=== PATIENT | female | born 1970 | race Caucasian/White ===

== ENCOUNTER 2016-11-13 14:40 | Observation (INO) | payer MEDICAID ==
[2016-11-13] MEDS ORDERED: OXYCODONE-ACETAMINOPHEN 5-325 MG TABLET PO ONE (15:11)
--- NOTE | 2016-11-13 15:13 | ER Document Report ---
ED Medical Screen (RME) - General Chief Complaint: Fall Injury Stated Complaint: FALL/HIP AND RIB PAIN Time seen by provider: 15:11 Mode of Arrival: Wheelchair Information source: Patient TRAVEL OUTSIDE OF THE [place] IN LAST 30 DAYS: No - HPI Patient complains to provider of: trip and fall Onset: Just prior to arrival Onset/Duration: Sudden Quality of pain: Achy Severity: Severe Pain Level: 5 Exacerbated by: Movement Relieved by: Denies Similar symptoms previously: No Recently seen / treated by doctor: No Notes: 11/13/16 15:12 Patient is a 46 female who presents to the emergency room via EMS for trip and fall down 2 stairs landing on her left side on the concrete, reports pain to her left hip, left rib cage, stating that she can feel her ribs crack and moving with each breath, states she also hit her head, denies any loss of consciousness but reports a headache - Related Data Allergies/Adverse Reactions: Penicillins Allergy (Verified 11/13/16 15:03) Past Medical History Renal/ Medical History: Denies: Hx Peritoneal Dialysis Physical Exam - Vital signs Vitals: Temp Pulse Resp BP Pulse Ox 97.3 F 78 20 119/92 H 100 11/13/16 15:03 11/13/16 15:03 11/13/16 15:03 11/13/16 15:03 11/13/16 15:03 Course - Vital Signs Vital signs: Temp Pulse Resp BP Pulse Ox 97.3 F 78 20 119/92 H 100 11/13/16 15:03 11/13/16 15:03 11/13/16 15:03 11/13/16 15:03 11/13/16 15:03
[2016-11-13] MEDS ORDERED: KETOROLAC TROMETHAMINE 60 MG/2 ML SDV IM ONE (16:50)
--- NOTE | 2016-11-13 17:56 | ER Document Report ---
ED Fall - General Mode of Arrival: Wheelchair Information source: Patient TRAVEL OUTSIDE OF THE [place] IN LAST 30 DAYS: No - HPI Patient complains to provider of: Pain from Fall Occurred: Just prior to arrival Where: Home Context: Tripped Associated symptoms: Other - Lethargic. denies: Lost consciousness, Seizure Location of injury/pain: Ankle - Left, Hip - Left, Trunk - Left ribs <REYNALDO MOODY - Last Filed: 11/13/16 18:50> <REA SOLOMON - Last Filed: 11/16/16 05:47> - General Chief Complaint: Fall Injury Stated Complaint: FALL/HIP AND RIB PAIN Notes: Patient is a 46-year-old female presenting to the emergency department after tripping and falling down 3 steps onto a cement slab hold while holding a pot of water for her grapevines to soak in. Patient states that she landed on her left side and the pot hit her in the head. Patient is concerned about her left ribs, left hip, and left ankle. Patient's daughter states that she was acting lethargic, and the patient has a history of narcolepsy, so they were keeping her awake. Patient denies any loss of consciousness or seizure. Patient states that she was unable to get up, so she called EMS. (REYNALDO MOODY) - Related data Allergies/Adverse Reactions: Penicillins Allergy (Verified 11/13/16 15:03) Home Medications: Current Home Medications Dextroamphetamine/Amphetamine [Adderall 30 mg Tablet] 15 mg PO QPM 11/13/16 [ History] Dextroamphetamine/Amphetamine [Adderall 30 mg Tablet] 30 mg PO BID@0800,1200 09/27 [History] Past Medical History - General Information source: Patient - Social History Smoking Status: Current Every Day Smoker Chew tobacco use (# tins/day): No Frequency of alcohol use: None Drug Abuse: None Family History: Reviewed & Not Pertinent Patient has suicidal ideation: No Patient has homicidal ideation: No Neurological Medical History: Reports: Other - Narcolepsy Past Surgical History: Reports: Hx Tubal Ligation - Immunizations Hx Diphtheria, Pertussis, Tetanus Vaccination: No - pt not sure <REYNALDO MOODY - Last Filed: 11/13/16 18:50> Review of Systems - Review of Systems Constitutional: No symptoms reported EENT: No symptoms reported Cardiovascular: No symptoms reported Respiratory: No symptoms reported Gastrointestinal: No symptoms reported Genitourinary: No symptoms reported Female Genitourinary: No symptoms reported Musculoskeletal: See HPI, Other - Pain to left ribs, left hip and left ankle Skin: No symptoms reported Hematologic/Lymphatic: No symptoms reported Neurological/Psychological: No symptoms reported -: Yes All other systems reviewed and negative <REYNALDO MOODY - Last Filed: 11/13/16 18:50> Physical Exam - Vital signs Interpretation: Normal - General General appearance: Appears well, Alert - HEENT Head: Normocephalic, Atraumatic Eyes: Normal Pupils: PERRL Tympanic membrane: No: Hemotympanum Neck: No: Posterior cervical chain - Respiratory Respiratory status: No respiratory distress Chest status: Nontender Breath sounds: Normal Chest palpation: Normal - Cardiovascular Rhythm: Regular Heart sounds: Normal auscultation Murmur: No - Abdominal Inspection: Normal Distension: No distension Bowel sounds: Normal Tenderness: Nontender Organomegaly: No organomegaly - Back Back: Nontender - No midline lumbar, cervical, or sacral tenderness. No: Vertebra tenderness - Extremities General upper extremity: Normal inspection, Nontender, Normal ROM, Normal strength, Normal temperature. No: Edema Hip: Tender - Superficial tenderness over abrasion with ecchymosis on the left anterior pelvis, Abrasion, Ecchymosis Ankle: Tender - Tenderness over the medial malleoli of the left ankle. No swelling, no erythema - Neurological Neuro grossly intact: Yes Cognition: Normal White[place] Coma Scale Eye Opening: Spontaneous [place] Coma Scale Verbal: Oriented Debra Coma Scale Motor: Obeys Commands White[place] Coma Scale Total: 15 Speech: Normal - Psychological Associated symptoms: Normal affect, Normal mood - Skin Skin Temperature: Warm Skin Moisture: Dry Skin Color: Normal <REYNALDO MOODY - Last Filed: 11/13/16 18:50> Course <REYNALDO MOODY - Last Filed: 11/13/16 18:50> - Laboratory Result Diagrams: 11/13/16 19:00 11/13/16 19:00 <REA SOLOMON - Last Filed: 11/16/16 05:47> - Re-evaluation Re-evalutation: 11/13/16 18:09 Patient presents emergency per with chief plain left hip pain left rib pain status post mechanical fall she was going down stairs holding a pot of cold water tripped down 3 steps and landed on her left side onto a concrete slab. I said she had trouble getting up EMS came and on arrival she is complaining of pain over the left hip region which is not short or externally rotated. She also has pain over the rib cage area with no crepitus necrosis shortness of breath or hypoxia. Full eye examination doesn't reveal any other injuries. Questionable x-ray of the iliac crest CT scan showed a iliac fracture with inferior 10 mm displacement. I contacted Dr. Whitfield hiv prevention specialist for orthopedic surgeon and read the results of the x-ray CT scan to him verbatim. At this point he says the patient can go home with pain medication and a walker and he will see her in the office in 2 or 3 days. Discussed this with the patient order written for walker although can't discharge her with one from here. As well as pain control and orthopedic follow-up. 11/13/16 18:44 To the bedside to reassess patient patient very angry at the suggestion of sending her home by ambulance with a walker pain medication orthopedic follow- up. After she got done being angry with me and telling me that she did not prefer the way I practiced medicine I asked her if she wanted me to contact the hospitalist for pain control she says she can't roll over in the bed she can't use a walker and she can't walk I spoke with the hospitalist who said he would admit her for observation with the perspective that she'll be going home in the morning with the same issues of pain walker outpatient follow-up. Discussed this with the patient and admitted her to the hospital. (REA SOLOMON) - Vital Signs Vital signs: Temp Pulse Resp BP Pulse Ox 98.1 F 84 16 123/74 96 11/15/16 12:58 11/15/16 12:58 11/15/16 12:58 11/15/16 12:58 11/15/16 12:58 Discharge <REYNALDO MOODY - Last Filed: 11/13/16 18:50> - Discharge Admitting Provider: Hospitalist Unit Admitted: Medical Floor <REA SOLOMON - Last Filed: 11/16/16 05:47> - Discharge Clinical Impression: acute left ninth rib fracture, acute left pelvic fracture, intractable pain Condition: Stable Disposition: ADMITTED OBSERVATION Scribe Attestation: 11/13/16 18:09 I personally performed the services described in the documentation reviewed the documentation recorded by my scribe in my presence and it accurately and completely records my words and actions (REA SOLOMON) Scribe Documentation - Scribe Written by Scribisa:: Reynaldo Moody 11/13/2016 [id number] acting as scribe for :: Dr. Solomon <REYNALDO MOODY - Last Filed: 11/13/16 18:50>
[2016-11-13] MEDS ORDERED: ONDANSETRON HCL INJ/PF 4 MG/2 ML SDV IV PRN (18:49)
[2016-11-13] MEDS ORDERED: ACETAMINOPHEN 325 MG TABLET PO PRN (18:49)
--- NOTE | 2016-11-13 19:07 | PDOC H&P ---
History of Present Illness Admission Date/PCP: 11/13/16 18:48 Patient complains of: Pelvic pain History of Present Illness: RICHMOND ROJAS is a 46 year old female that sustained a mechanical fall today resulting in left chest wall and left pelvic pain. She was found to have a left ninth rib fracture and left iliac fracture in emergency department. Dr. Whitfield of orthopedics was consulted over the telephone and reviewed imaging. He advised pain control and ambulation with a rolling walker. He advised outpatient orthopedic follow-up. Patient was unable to discharge from the emergency department due to intractable pain. Past Medical History Cardiac Medical History: Reports: None Pulmonary Medical History: Reports: None EENT Medical History: Reports: None Neurological Medical History: Reports: Other - Narcolepsy Past Surgical History Past Surgical History: Reports: Tubal Ligation Social History Information Source: Patient Smoking Status: Current Every Day Smoker - Advance Directive Resuscitation Status: Full Code Family History Family History: Reviewed & Not Pertinent Parental Family History Reviewed: Yes Children Family History Reviewed: Yes Sibling(s) Family History Reviewed.: Yes Medication/Allergy Home Medications: Oxycodone HCl/Acetaminophen [Percocet 5-325 mg Tablet] 1 - 2 tab PO Q4H PRN #15 tablet 11/13/16 Allergies/Adverse Reactions: Penicillins Allergy (Verified 11/13/16 15:03) Review of Systems Constitutional: ABSENT: chills, fever(s), headache(s), weight gain, weight loss Eyes: ABSENT: visual disturbances Ears: ABSENT: hearing changes Cardiovascular: ABSENT: chest pain, dyspnea on exertion, edema, orthropnea, palpitations Respiratory: ABSENT: cough, hemoptysis Gastrointestinal: ABSENT: abdominal pain, constipation, diarrhea, hematemesis, hematochezia, nausea, vomiting Genitourinary: ABSENT: dysuria, hematuria Musculoskeletal: PRESENT: other - Pelvic, left chest wall pain. ABSENT: joint swelling Integumentary: ABSENT: rash, wounds Neurological: ABSENT: abnormal gait, abnormal speech, confusion, dizziness, focal weakness, syncope Psychiatric: ABSENT: anxiety, depression, homidical ideation, suicidal ideation Endocrine: ABSENT: cold intolerance, heat intolerance, polydipsia, polyuria Hematologic/Lymphatic: ABSENT: easy bleeding, easy bruising Physical Exam Vital Signs: Temp Pulse Resp BP Pulse Ox 97.3 F 82 18 119/85 100 11/13/16 15:03 11/13/16 18:05 11/13/16 18:05 11/13/16 18:05 11/13/16 15:03 PHYSICAL EXAM: GENERAL: Appears well, no acute distress HEENT: Normocephalic, no scleral icterus, conjunctiva clear, EOEM intact, PERRLA , moist mucous membranes NECK: trachea midline, no thyromegally RESPIRATORY: Clear to auscultation, no wheezes/rhonchi CARDIAC: Regular rate and rhythm, no murmur/ekta/rub ABDOMEN: Soft, no distension, no tenderness, no guarding, normal bowel sounds, negative Benitez sign RECTAL: deferred : deferred EXTREMITIES: No edema, cyanosis, clubbing MUSCULOSKELETAL: Left chest wall tenderness, pain with range of motion left lower extremity VASCULAR: normal peripheral pulses NEUROLOGIC: Alert, oriented to person/place/time, normal speech, cranial nerves grossly intact, 5/5 strength in all extremities, tactile sensation intact in all extremities SKIN: No rash, no wounds, no worrisome skin lesions PSYCHIATRIC: Tearful, crying Results Impressions: Head CT 11/13/16 15:11 IMPRESSION: NORMAL BRAIN CT WITHOUT CONTRAST. Hip X-Ray 11/13/16 15:11 IMPRESSION: 1. BONY IRREGULARITY OR EXOSTOSIS ON THE LEFT ILIAC CREST. THIS IS PROBABLY A CHRONIC FINDING. HOWEVER, DEPENDING ON THE MECHANISM OF INJURY AND CLINICAL SYMPTOMS, A FRACTURE CANNOT BE EXCLUDED. RECOMMEND CLINICAL CORRELATION AND IF THERE IS CONCERN THEN CT MAY BE INDICATED. 2. NO OTHER ACUTE OR SIGNIFICANT FINDINGS. Ribs w/Chest X-Ray 11/13/16 15:11 IMPRESSION: FRACTURE OF THE LATERAL LEFT 9TH RIB. NO SIGNIFICANT PULMONARY FINDINGS. Pelvis CT 11/13/16 16:49 IMPRESSION: 2 cm avulsed fragment from the left anterior superior iliac spine, 10 mm of inferior displacement fracture. Assessment & Plan - Diagnosis (1) Pelvic fracture Is this a current diagnosis for this admission?: YesPlan: Pain control. Physical therapy to ambulate patient using rolling walker. Outpatient orthopedic follow-up with Dr. Whitfield. Discharge home once patient is able to mobilize. (2) Left rib fracture Is this a current diagnosis for this admission?: Yes - Time Time Spent: 50 to 70 Minutes Anticipated discharge: Home Within: within 48 hours
[2016-11-13 19:24] LABS: ABSOLUTE BASOPHILS # (AUTO) 0.1 10^3/uL (0.0-0.2); ABSOLUTE EOSINOPHILS # (AUTO) 0.1 10^3/uL (0.0-0.6); ABSOLUTE LYMPHOCYTES (AUTO) 1.4 10^3/uL (0.5-4.7); ABSOLUTE MONOCYTES (AUTO) 0.5 10^3/uL (0.1-1.4); ABSOLUTE NEUT (AUTO) 6.3 10^3/uL (1.7-8.2); BASOPHILS % (AUTO) 0.7 % (0-2); EOSINOPHILS % (AUTO) 1.3 % (0-6); HEMATOCRIT 37.8 % (36.0-47.0); HEMOGLOBIN 12.8 g/dL (12.0-15.5); HGB HCT DIFFERENCE 0.6; MEAN CORPUSCULAR HEMOGLOBIN 31.5 pg (27.0-33.4); MEAN CORPUSCULAR HGB CONC 33.9 g/dL (32.0-36.0); MEAN CORPUSCULAR VOLUME 93 fl (80-97); MONOCYTES % (AUTO) 6.2 % (3-13); RED BLOOD COUNT 4.07 10^6/uL (3.72-5.28); RED CELL DISTRIBUTION WIDTH 12.9 % (11.5-14.0); SEGMENTED NEUTROPHILS % (AUTO) 74.8 % (42-78); WHITE BLOOD COUNT 8.4 10^3/uL (4.0-10.5)
[2016-11-13 19:52] LABS: ALANINE AMINOTRANSFERASE 34 U/L (9-52); ALBUMIN 3.9 g/dL (3.5-5.0); ALKALINE PHOSPHATASE 90 U/L (38-126); ANION GAP 10 (5-19); ASPARTATE AMINO TRANSFERASE 31 U/L (14-36); BILIRUBIN,DIRECT 0.1 mg/dL (0.0-0.4); BILIRUBIN,TOTAL 0.4 mg/dL (0.2-1.3); BLOOD UREA NITROGEN 13 mg/dL (7-20); CALCIUM 8.9 mg/dL (8.4-10.2); CARBON DIOXIDE 29 mmol/L (22-30); CHLORIDE 103 mmol/L (98-107); CREATININE RESULT 0.61 mg/dL (0.52-1.25); GLUCOSE 159 mg/dL (75-110); POTASSIUM 3.9 mmol/L (3.6-5.0); SODIUM 142.4 mmol/L (137-145); TOTAL PROTEIN 6.4 g/dL (6.3-8.2)
[2016-11-13] MEDS: HYDROMORPHONE HCL INJ/PF 2 MG/ML AMPULE IV PRN (20:31)
[2016-11-13] MEDS: HEPARIN SOD (PORCINE) 5,000 UNIT/ML 1 ML SYRINGE SUBCUT SCH (21:48)
[2016-11-14] MEDS: HYDROMORPHONE HCL INJ/PF 2 MG/ML AMPULE IV PRN ×4 (01:01→18:15)
[2016-11-14] MEDS: HEPARIN SOD (PORCINE) 5,000 UNIT/ML 1 ML SYRINGE SUBCUT SCH ×3 (05:24→21:11)
[2016-11-14] MEDS: OXYCODONE HCL IR 5 MG TABLET PO PRN (09:16)
--- NOTE | 2016-11-14 12:27 | PDOC PROGRESS REPORT ---
Subjective Progress Note for:: 11/14/16 Subjective:: Patient has continued pain that has been relieved with IV Dilaudid. She was able to get from bed to the bedside commode but was very uncomfortable. Patient denies fever, chills, headache, new focal weakness, chest pain, shortness of breath, abdominal pain, nausea, vomiting, diarrhea, constipation. Physical Exam Vital Signs: Temp Pulse Resp BP Pulse Ox 97.9 F 73 16 114/77 93 11/14/16 08:44 11/14/16 08:44 11/14/16 08:44 11/14/16 08:44 11/14/16 08:44 Intake & Output 11/13/16 11/14/16 11/15/16 06:59 06:59 06:59 Intake Total 300 Output Total 1 Balance 299 Weight 71.6 kg GENERAL: No acute distress, uncomfortable appearing HEENT: Conjunctiva clear, nonicteric, moist mucous membranes, no JVD, midline trachea RESPIRATORY: Clear to auscultation bilaterally, no wheezes, no rhonchi CARDIAC: Regular rate and rhythm, no murmurs/gallops/rubs ABDOMEN: Soft, nondistended, nontender, positive bowel sounds, no rebound, no guarding EXTREMETIES: No edema, cyanosis, clubbing NEUROLOGIC: Alert, oriented to person/place/time, CN's grossly intact, no focal deficits SKIN: No rash, wounds PSYCH: Normal mood, normal affect Results Laboratory Results: 11/13/16 19:00 11/13/16 19:00 11/13/16 11/13/16 19:00 19:00 WBC 8.4 RBC 4.07 Hgb 12.8 Hct 37.8 MCV 93 MCH 31.5 MCHC 33.9 RDW 12.9 Plt Count 205 Seg Neutrophils % 74.8 Lymphocytes % 17.0 Monocytes % 6.2 Eosinophils % 1.3 Basophils % 0.7 Absolute Neutrophils 6.3 Absolute Lymphocytes 1.4 Absolute Monocytes 0.5 Absolute Eosinophils 0.1 Absolute Basophils 0.1 Sodium 142.4 Potassium 3.9 Chloride 103 Carbon Dioxide 29 Anion Gap 10 BUN 13 Creatinine 0.61 Est GFR ( Amer) > 60 Est GFR (Non-Af Amer) > 60 Glucose 159 H Calcium 8.9 Total Bilirubin 0.4 AST 31 ALT 34 Alkaline Phosphatase 90 Total Protein 6.4 Albumin 3.9 Impressions: Head CT 11/13/16 15:11 IMPRESSION: NORMAL BRAIN CT WITHOUT CONTRAST. Hip X-Ray 11/13/16 15:11 IMPRESSION: 1. BONY IRREGULARITY OR EXOSTOSIS ON THE LEFT ILIAC CREST. THIS IS PROBABLY A CHRONIC FINDING. HOWEVER, DEPENDING ON THE MECHANISM OF INJURY AND CLINICAL SYMPTOMS, A FRACTURE CANNOT BE EXCLUDED. RECOMMEND CLINICAL CORRELATION AND IF THERE IS CONCERN THEN CT MAY BE INDICATED. 2. NO OTHER ACUTE OR SIGNIFICANT FINDINGS. Ribs w/Chest X-Ray 11/13/16 15:11 IMPRESSION: FRACTURE OF THE LATERAL LEFT 9TH RIB. NO SIGNIFICANT PULMONARY FINDINGS. Pelvis CT 11/13/16 16:49 IMPRESSION: 2 cm avulsed fragment from the left anterior superior iliac spine, 10 mm of inferior displacement fracture. Assessment & Plan - Diagnosis (1) Pelvic fracture Is this a current diagnosis for this admission?: YesPlan: Pain control. Physical therapy to ambulate patient using rolling walker. Outpatient orthopedic follow-up with Dr. Whitfield. Discharge home once patient is able to mobilize. (2) Left rib fracture Is this a current diagnosis for this admission?: YesPlan: Incentive spirometer. Pain control. (3) Narcolepsy Is this a current diagnosis for this admission?: YesPlan: Resume home doses of Adderall. - Time Time Spent with patient: 25-34 minutes Anticipated discharge: Home Within: within 48 hours
[2016-11-14] MEDS ORDERED: AMPHETAMINE PO SCH (18:00)
[2016-11-14] MEDS ORDERED: DEXTROAMPHETAMINE PO SCH (18:00)
[2016-11-15] MEDS: HYDROMORPHONE HCL INJ/PF 2 MG/ML AMPULE IV PRN ×2 (00:19→11:13)
[2016-11-15] MEDS: OXYCODONE HCL IR 5 MG TABLET PO PRN (05:18)
[2016-11-15] MEDS: HEPARIN SOD (PORCINE) 5,000 UNIT/ML 1 ML SYRINGE SUBCUT SCH ×2 (05:18→13:09)
[2016-11-15] MEDS ORDERED: (PENDING PHARMACY ID) (Dextroamphetamine/Amphetamine [Adderall 30 Mg Tablet] 30 MG) PO SCH (08:00)
[2016-11-15 13:01] VITALS: BP 123/74
--- NOTE | 2016-11-15 17:28 | PDOC DISCHARGE SUMMARY ---
General - Admit/Disc Date/PCP Admission Date/Primary Care Provider: 11/13/16 18:49 Discharge Date: 11/15/16 - Discharge Diagnosis (1) Pelvic fracture Is this a current diagnosis for this admission?: Yes (2) Left rib fracture Is this a current diagnosis for this admission?: Yes (3) Narcolepsy Is this a current diagnosis for this admission?: Yes - Additional Information Resuscitation Status: Full Code Discharge Activity: Activity As Tolerated, Balance Activity w/Rest, Slowly Increase Activity Home Medications: Dextroamphetamine/Amphetamine [Adderall 30 mg Tablet] 15 mg PO QPM 11/13/16 Dextroamphetamine/Amphetamine [Adderall 30 mg Tablet] 30 mg PO BID@0800,1200 09/27 Acetaminophen [Tylenol 325 mg Tablet] 650 mg PO Q4HP PRN tablet 11/15/16 Docusate Sodium [Colace 100 mg Capsule] 100 mg PO BID #60 capsule 11/15/16 Oxycodone HCl [Oxy-Ir 5 mg Tablet] 1 - 2 tab PO Q6HP PRN #30 tablet 11/15/16 History of Present Illness Patient complains of: Pain History of Present Illness: RICHMOND ROJAS is a 46 year old female that sustained a mechanical fall today resulting in left chest wall and left pelvic pain. She was found to have a left ninth rib fracture and left iliac fracture in emergency department. Dr. Whitfield of orthopedics was consulted over the telephone and reviewed imaging. He advised pain control and ambulation with a rolling walker. He advised outpatient orthopedic follow-up. Patient was unable to discharge from the emergency department due to intractable pain. Hospital Course Hospital Course: Patient sustained a fall resulting in left ninth rib fracture and pelvic fracture. Conservative management recommended by Dr. Whitfield of orthopedics. Patient was placed in observation status for intractable pain. She was mobilized with the assistance of physical therapy. She is discharged home in stable condition. Physical Exam Vital Signs: Temp Pulse Resp BP Pulse Ox 98.1 F 84 16 123/74 96 11/15/16 12:58 11/15/16 12:58 11/15/16 12:58 11/15/16 12:58 11/15/16 12:58 Intake & Output 11/14/16 11/15/16 11/16/16 06:59 06:59 06:59 Intake Total 300 612 200 Balance 300 612 200 Weight 71.6 kg 72.1 kg GENERAL: No acute distress HEENT: Conjunctiva clear, nonicteric, moist mucous membranes, no JVD, midline trachea RESPIRATORY: Clear to auscultation bilaterally, no wheezes, no rhonchi CARDIAC: Regular rate and rhythm, no murmurs/gallops/rubs ABDOMEN: Soft, nondistended, nontender, positive bowel sounds, no rebound, no guarding EXTREMETIES: No edema, cyanosis, clubbing NEUROLOGIC: Alert, oriented to person/place/time, CN's grossly intact, no focal deficits SKIN: No rash, wounds PSYCH: Normal mood, normal affect Results Laboratory Results: 11/13/16 19:00 11/13/16 19:00 Impressions: Head CT 11/13/16 15:11 IMPRESSION: NORMAL BRAIN CT WITHOUT CONTRAST. Hip X-Ray 11/13/16 15:11 IMPRESSION: 1. BONY IRREGULARITY OR EXOSTOSIS ON THE LEFT ILIAC CREST. THIS IS PROBABLY A CHRONIC FINDING. HOWEVER, DEPENDING ON THE MECHANISM OF INJURY AND CLINICAL SYMPTOMS, A FRACTURE CANNOT BE EXCLUDED. RECOMMEND CLINICAL CORRELATION AND IF THERE IS CONCERN THEN CT MAY BE INDICATED. 2. NO OTHER ACUTE OR SIGNIFICANT FINDINGS. Ribs w/Chest X-Ray 11/13/16 15:11 IMPRESSION: FRACTURE OF THE LATERAL LEFT 9TH RIB. NO SIGNIFICANT PULMONARY FINDINGS. Pelvis CT 11/13/16 16:49 IMPRESSION: 2 cm avulsed fragment from the left anterior superior iliac spine, 10 mm of inferior displacement fracture. Qualifiers PATEINT BEING DISCHARGED WITH ANY OF THE FOLLOWING DIAGNOSIS?: No Plan Time Spent: Less than 30 Minutes
== END 2016-11-15 13:27 | disposition home or self-care (01) ==
LOC: ER 14:40 → EH 18:48 → UNDOADMOB 18:48 → EH 18:49 → 4S 21:14
PROVIDERS: ADMIT Family Medicine; ATTEND Family Medicine
DX: S22.32XA Fracture of one rib, left side, initial encounter for closed fracture (principal); S32.312A Displaced avulsion fracture of left ilium, initial encounter for closed fracture; W10.9XXA Fall (on) (from) unspecified stairs and steps, initial encounter; Y92.009 Unspecified place in unspecified non-institutional (private) residence as the place of occurrence of the external cause; G47.419 Narcolepsy without cataplexy; M25.572 Pain in left ankle and joints of left foot; F17.200 Nicotine dependence, unspecified, uncomplicated
CPT/HCPCS: 99285; 96372; 36415; 85025; 80053; 73502; 71101; 70450; 72192; 97110; 97116; 97163; G0378 ×4; J1644 ×3; J1885; J1170 ×3; J3490 ×5; J2405